=== PATIENT | male | born 1995 | race Two or more races ===

== ENCOUNTER 2016-11-02 14:48 | Inpatient (IN) | payer OTHER ==
[2016-11-02] MEDS ORDERED: MAGNESIUM HYDROXIDE 30 ML UDCUP PO PRN (17:08)
[2016-11-02] MEDS ORDERED: BISACODYL 10 MG SUPP PR PRN (17:08)
[2016-11-02] MEDS ORDERED: POLYETHYLENE GLYCOL 3350 17 GM PKT PO PRN (17:08)
[2016-11-02] MEDS ORDERED: MAG HYDROX/AL HYDROX/SIMETH 30 ML UDCUP PO PRN (17:08)
[2016-11-02] MEDS ORDERED: DIAZEPAM 5 MG TAB PO PRN (17:23)
--- NOTE | 2016-11-02 18:11 | PDOREHIP ---
Admission IRF-[facility] - Admission - 3 Day Assessment Period Admission Date/Day 1: 11/02/16 Day 2: 11/03/16 Day 3: 11/04/16 - Active Diagnoses Comorbidities and Co-existing Conditions at Admission: 11357. None of the Above - Skin Conditions Unhealed Pressure Ulcer (1 or more/Stage 1 or >)-Admission: 0. No
--- NOTE | 2016-11-02 19:33 | GHP ---
[f rep st] HISTORY AND PHYSICAL POST ADMISSION PHYSICIAN EVALUATION AND REHABILITATION TREATMENT PLAN DATE OF ADMISSION: 11/02/2016 DATE OF EVALUATION: 11/02/2016 REFERRING FACILITY: [facility]. 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 He was counseled that surgery was a reasonable treatment and had decompression on 10/27/2016 with a posterior fossa decompression with C0 through C4 PSF with Dr. Ballard. Apparently the surgery went well and postoperatively he did well in the ICU and was transferred to the floor. He was treated for pain as an inpatient and postoperative x-rays demonstrated stable hardware and decreased brainstem compression. After the surgery, the patient notes that he had greater right-sided weakness in the right arm and right leg and he felt that his left-sided symptoms were relatively normal with unchanged function on that side. He was discharged and recommended not to lift more than 10 pounds and no bending or twisting of the neck until followup. He also has a [place] J collar. He notes that his last bowel movement was approximately 8 days ago, but this may contradict Nursing reports. He had a Antony up until a couple of days ago and notes that he has been urinating well and he reports that he has not had residuals, but it is unclear whether that is confirmed or not. He notes that he is sleeping okay with minimal pain and his pain has been in relatively good control. He endorses some mild orthostasis which has improved over the past few days. The patient was discharged to TCU on 10/31/2016 in stable condition for continued rehab and was identified as a rehab candidate by the therapist and staff there and was transferred over to [facility] for further care. STUDIES AND LABS: 1. Head CT from 10/26/[address] of the head. 2. MRI of the brain without contrast on 10/26/2016 showed congenital narrowing and deformity of the opening of the proximal central canal. There does appear to be a Chiari I malformation. Further characterization could be obtained with an MRI of the cervical spine and otherwise no evidence of infarction or hemorrhage. 3. CT of the head on 10/26/2016 showed platybasia with fusion of the right atlanto-occipital articulation and developmental fusion of the C2-C3 vertebrae with no acute fracture or malalignment. Straightening and reversal of the normal cervical lordosis apex C6 and Chiari malformation with cord syrinx better seen on recent MRI. 4. MRI of the cervical spine from 10/26/2016 showed significant Chiari I malformation associated with large syrinx of the cervical spine and associated severe myelomalacia. 5. MRI of the cervical spine dated 10/27/2016 showing a large long segment of syrinx extending from the cervical spine to the midbody of T11 and very mild dextroscoliosis in the upper thoracic spine. 6. X-ray of the cervical spine, 2 or 3 views, dated 10/27/2016, showed interval C1 through 4 posterior fusion, congenital C2-C3 fusion, as well as findings of basilar invagination shown on previous cross sectional imaging, not well demonstrated. 7. Most recent labs on 10/29 showed a hematocrit of 36.6 that was down from 50.5 on 10/26. Sodium was 135, potassium 3.9, chloride 100, carbon dioxide 28, anion gap 11, BUN 9, creatinine 0.49, glucose 103, calcium 8.3. PRECAUTIONS: As noted above, he should not be lifting greater than 10 pounds. No twisting. PAST MEDICAL HISTORY: The patient indicates that he was hit by a pipe in his right shoulder a few months ago and thought that may have been what started the weakness on the right side, otherwise no past medical history. PAST SURGICAL HISTORY: None except for surgery as described above from 2016 for decompression and fusion. PREHOSPITAL MEDICATIONS: None. Coming into rehab he was on: 1. Acetaminophen 650 mg every 6 hours p.r.n. for mild pain. 2. Diazepam 5 mg every 6 hours p.r.n. for anxiety or muscle spasms. 3. Enoxaparin 40 mg daily. 4. Magnesium hydroxide 30 mg 2 times daily p.r.n. for constipation. 5. Morphine 12 hour tablet 15 mg every 12 hours scheduled. 6. Oxycodone 5-10 mg every 4 hours for pain that is moderate. 7. Polyethylene glycol 17 g daily p.r.n. for constipation. ALLERGIES: No known drug allergies. FAMILY HISTORY: No history of psychiatric or neurological disorders. PSYCHOSOCIAL HISTORY: He worked in the [employer] on pipes until his injury. His employer is aware of him being in the hospital. He has family in the area including aunts and uncles and some siblings. No alcohol, drugs or tobacco. He plans to discharge to a trailer with some friends as it is more accessible than his current living situation which was in a basement. REVIEW OF SYSTEMS: All other systems are negative except for as described above. CURRENT FUNCTION: As noted above, he was fully independent prior to this illness and surgery and currently he is independent with feeding, requires assistance with grooming, bathing and unclear what his dressing capability is. He needs some moderate assistance with bed mobility and transfers with min assistance to the toilet. He currently has an AFO and a front-wheel walker and a [place] J and is walking 150 feet with assistance from 2 people and a front- wheel walker. He is currently not using a wheelchair. PHYSICAL EXAMINATION: VITAL SIGNS: Reviewed and normal. GENERAL: He is normally developed, lying in bed. He has a [place] J on and he is by himself in the room. It does smell of feces in the room. EYES: Anicteric. Pupils were equal, round and reactive to light. EARS, NOSE, MOUTH, THROAT: Moist mucous membranes. He has relatively normal dentition. CARDIOVASCULAR: Heart is regular rate and rhythm. Normal S1 and S2. No murmurs were appreciated. No lower extremity edema. EXTREMITIES: Were warm. RESPIRATORY: He was breathing comfortably in room air. Lungs were clear to auscultation bilaterally. He had no wheezes, rhonchi or rales. GI: Abdomen had positive bowel sounds. It was nondistended, nontender. : He had no Antony in place. MUSCULOSKELETAL: He had an AFO on the right foot. He had mild spasticity approximately 2 on the modified Aura Scale with some possible finger contractions on the right side, indicating a longer course of impairments. SKIN : No rashes or skin breakdown. He had some calloused and somewhat dirty skin on his hands. PSYCH: He was appropriate, pleasant and cooperative. He endorsed a normal mood, had a normal affect and had reasonable normal thought content. HEME/LYMPH: No supraclavicular lymphadenopathy. No bruising. NEUROLOGIC: Mental status: In general he was alert and oriented x3, but full mental status exam was deferred as no cognitive complaints. Cranial nerves 2 through 12 were intact and symmetric bilaterally including no diplopia and no facial droop. Strength was 5/5 in the left upper and lower limbs but on the right he had approximately 4 minus in the right-sided biceps and 4 in the wrist extensors, 4+ in the finger flexors, 4 minus in the finger abductors, and 4 in the hip flexor, knee extensor and 4+ in the ankle dorsiflexor and plantar flexor and EHL. Reflexes were 2+ on the left-sided biceps, triceps, brachioradialis, and patella and Achilles with an upgoing toe on the left. On the right reflexes were 2+ in the biceps, triceps, and brachioradialis, but 3+ in the patella and in the Achilles he did have some clonus and again upgoing toes on the right as well. He had positive Syed's bilateral upper limbs. He did have some mild spasticity as noted above, approximately 2 on the modified Aura Scale. Sensation was intact to light touch in the hands and feet and also intact to mild temperature changes. Rapid-alternating movements were intact on the left, but impaired on the right. [id number] was normal on the bilateral upper limbs. Pdmg-ve-dndb testing was deferred. He was not ambulated. 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 It appears that he likely had onset of the symptoms very gradually starting weeks to months ago and gradually worsened until he presented for care. Status post decompression it appears that his primary deficits are on the right side, primarily in motor as well, though sensory appeared grossly intact on this exam, it may impact him functionally depending on subtle deficits. Overall, he has impairments in mobility and self-care, consistent with a nontraumatic spinal cord injury and he appears to be stable and neurologically improving and ready for rehabilitation. His goal is to transition home with relatives for a temporary living location, ultimately return home and get back to work. ISSUES IDENTIFIED: 1. Status post surgical decompression and nontraumatic spinal cord injury: As noted above he has impairments in mobility and self-care that would benefit from physical therapy, occupational therapy evaluations and treatment with the goal to discharge to a temporary living situation with family. He has good premorbid functioning and that will likely serve him well in this. 2. Pain control: Status post surgical decompression he notes relatively low amounts of pain. We are continuing the p.o. scheduled morphine as well as the p.r.n. pain medications with the goal to taper off the opioids entirely. 3. Spasticity: He appears to have some spasticity on the right side that is currently treated with p.r.n. diazepam. Unclear the effect that it may be having on that or whether or not he is using the diazepam. At this point I recommend starting without treatment or with the p.r.n. diazepam and if spasticity is functionally impairing his progress, then starting on a low-dose of baclofen in lieu of diazepam. On the indications included with that medication it said anxiety as well which I am not sure has been an issue for him , but we can continue to monitor and check usage. 4. Neurogenic bowel: Based on the fact that he may not have had a bowel movement in several days, he may be suffering from neurogenic bowel. We are going to start a bowel program including the scheduled and p.r.n. bowel medications. 5. Neurogenic bladder: He had reportedly low postvoid residuals by the patient , but I have not seen documentation of that in his medical record that accompanied him yet. Will continue to look for documentation and start on a rehab bladder program, assuming that he does have bladder involvement from his nontraumatic spinal cord injury. 6. Code status: Full code. 7. Anticoagulation for deep venous thrombosis PPx: He does not have a DVT and would need DVT prophylaxis given the spinal cord injury and he is currently on 30 mg of Lovenox subcutaneous twice a day. Sequential compression devices are contraindicated because of his high mobility status. 8. Skin: Neurogenic skin. Continue to monitor. He does not appear to have any skin breakdown at this time. 9. Surgical wounds: We plan to change the dressing daily and monitor for good wound healing. 10. Orthotics: The patient does currently have a right-sided ankle foot orthosis which given the strength of his right leg may or may not be needed. He might be benefitting from it for knee stability with walking and he does have good ankle dorsiflexion so I anticipate that that is probably the reason he has it. He can continue with the current AFO, but need a new one at this facility and will continue to work on that with therapies. INDIVIDUALIZED OVERALL PLAN OF CARE: Overall I think he has a very good medical and rehabilitation prognosis as he has low comorbid conditions affecting his function and good function on his left side compared to his right. I have independently evaluated and examined the patient. He will require close daily supervision from a rehab physician and would benefit from an interdisciplinary team approach with physical therapy for 1-1/2 hours per day, 5-7 days a week, and occupational therapy for 1-1/2 hours per day, 5-7 days per week as well as prosthetics and orthotics for a right-sided ankle foot orthosis if needed TBD. He will also benefit from working with the social workers and nutrition. I anticipate that he will be able to achieve independence with some modification and assistive devices for ambulation as well as all aspects of self-care. He can tolerate 3 hours of therapy per day and will participate in therapy in a sufficient carryover to benefit from rehabilitation. The patient will benefit from the comprehensive inpatient rehab therapies to address the functional goals above. I anticipate that he will make meaningful progress toward the rehab goals in a reasonable amount of time. Continued progress towards rehabilitation goals cannot be achieved at a lower level of care. Plan is to discharge to friends and family after 7-10 days, though I anticipate that he may benefit from a longer rehabilitation stay to be determined. He may also be at risk for some orthostatic hypotension which he addressed as a possible concern, though it has improved, as well as other things such as mood disruption, sleep changes, neuropathic pain, urinary tract infection, DVT, heterotopic ossification, pneumonia, nutritional deficiency, pressure ulcer, or shoulder pain and we will monitor clinically for these things and treat as appropriate. He should follow up with Dr. Ballard, his neurosurgeon, 2 weeks postoperative for a wound check and wear a C-collar at all times except for when showering. /[id number]/MODL MTDD
[2016-11-02] MEDS: oxyCODONE IR 5 MG TAB PO PRN (19:47)
[2016-11-02] MEDS: morphINE SR 15 MG TAB PO SCH (19:48)
[2016-11-02] MEDS: SENNOSIDES/DOCUSATE SODIUM TAB PO SCH (19:49)
[2016-11-02] MEDS: ENOXAPARIN 30 MG/0.3 ML SYR SC SCH (19:49)
[2016-11-03] MEDS: ENOXAPARIN 30 MG/0.3 ML SYR SC SCH ×2 (08:38→21:30)
[2016-11-03] MEDS: morphINE SR 15 MG TAB PO SCH ×2 (08:38→21:25)
[2016-11-03] MEDS: SENNOSIDES/DOCUSATE SODIUM TAB PO SCH ×2 (08:38→21:29)
[2016-11-03] MEDS ORDERED: FLU VACC QS 2016-17(3-64YR)/PF 0.5 ML SYR (FLUARIX QUAD) IM ONE (15:51)
[2016-11-03] MEDS ORDERED: BACLOFEN 10 MG TAB PO PRN (16:45)
--- NOTE | 2016-11-03 16:56 | SOAPPROG ---
SOAP Progress Note Assessment/Plan: 20yo Malay speaking M with Klippel-Feil, Platybasia and Chiari malformation c/ b cervical syrinx s/p occiput-C4 decompression/PSF 10/27/2015 with ongoing Right sided weakness/spasticity. Non-traumatic SCI with impairments in mobility and ADLs: PT/OT/RN under physiatric supervision with goal of safe discharge to home Klippel-Feil, Platybasia and Chiari malformation c/b cervical syrinx s/p occiput -C4 decompression/PSF: Maria Esther Snowden at all times except for hygeine, Dressing changes QOD, Right AFO prn Spasticity: Mild and not seemingly disturbing, will change Valium to baclofen 10mg TID prn Pain control: improving, minimal prn use past 24hrs, will d/c his a.m. Morphine ER. Cont. Ms contin 15 qHS with Oxy IR 5-10mg q 4hrs prn to taper Constipation: escalating bowel regiment, decreasing opioids Orthostatic hypotension: Not impeding therapies, encouraging P.O. hydration, will check labs given none documented Neurogenic bowel/bladder: no e/o this impeding function, bladder scans wnls Prophy: LMWH, no GI indicated Full code Dispo: home temporarily with family Follow up: Dr. Ballard ([facility]) 2week post op (~11/12) Subjective: No acute events. Lightheadedness with sitting up and/or standing but has been able to tolerate ambulating with therapies. Notes some subjective bowel distension and mild anorexia. Pain well controlled. Denies SOB/N/V. Objective: Vital Signs Temp Pulse Resp BP Pulse Ox 36.6 C 97 16 116/80 95 11/03/16 08:00 11/03/16 16:05 11/03/16 08:00 11/03/16 16:05 11/03/16 08:00 11/02/16 11/03/16 11/04/16 05:59 05:59 05:59 Intake Total 250 Output Total 950 175 Balance -700 -175 - Pending Discharge Pending Discharge Within 24 Hours: No Pending Discharge Within 48 Hours: No Physical Exam - Physical Exam General Appearance: alert, no apparent distress Neck: other (in [place] j) Respiratory: lungs clear, normal breath sounds Cardiac/Chest: regular rate, rhythm Abdomen: normal bowel sounds, non-tender, soft Skin: normal color, other (incision dressed without strike through) Neuro/Psych: alert, normal mood/affect, oriented x 3, motor weakness (right UE 4 /5s with +hoffmans and MAS 0-1+ ) ICD10 Worksheet Patient Problems: Problems Problem Status Diagnosed Neurogenic bowel Acute Right sided weakness Acute Syrinx of spinal cord Acute
--- NOTE | 2016-11-04 08:08 | SOAPPROG ---
SOAP Progress Note Assessment/Plan: 20yo Turkish speaking M with Klippel-Feil, Platybasia and Chiari malformation c/ b cervical syrinx s/p occiput-C4 decompression/PSF 10/27/2015 with ongoing Right sided weakness/spasticity. Non-traumatic SCI with impairments in mobility and ADLs: PT/OT/RN under physiatric supervision with goal of safe discharge to home Klippel-Feil, Platybasia and Chiari malformation c/b cervical syrinx s/p occiput -C4 decompression/PSF: [place] at all times except for hygiene, Dressing changes QOD, Right AFO prn Spasticity: Mild and not seemingly disturbing, will change Valium to baclofen 10mg TID prn Pain control: improving, minimal prn use, will d/c his a.m. Morphine ER. Cont. Ms contin 15 qHS with Oxy IR 5-10mg q 4hrs prn to taper Constipation: escalated bowel regiment, decreasing opioids, improving Orthostatic hypotension: Not impeding therapies, encouraging P.O. hydration, labs pending today Neurogenic bowel/bladder: no e/o this impeding function, bladder scans wnls Prophy: LMWH, no GI indicated Full code Dispo: home temporarily with family Follow up: Dr. Ballard ([facility] [place] [facility]) 2week post op (~11/12) Subjective: no acute events. slept well, pain well controlled. Denies CHRISTIAN, N/V. Good BM yesterday. Objective: Vital Signs Temp Pulse Resp BP Pulse Ox 36.9 C 86 14 109/79 94 11/04/16 06:24 11/04/16 06:24 11/04/16 06:24 11/04/16 06:24 11/04/16 06:24 11/03/16 11/04/16 11/05/16 05:59 05:59 05:59 Intake Total 250 1608 Output Total 950 575 Balance -700 1033 - Pending Discharge Pending Discharge Within 24 Hours: No Pending Discharge Within 48 Hours: No Physical Exam - Physical Exam General Appearance: alert, no apparent distress Neck: other ([place] j in place) Respiratory: lungs clear, normal breath sounds, No respiratory distress Cardiac/Chest: regular rate, rhythm Abdomen: non-tender, soft Skin: normal color, warm/dry Extremities: No pedal edema Neuro/Psych: alert, normal mood/affect, oriented x 3 ICD10 Worksheet Patient Problems: Problems Problem Status Diagnosed Neurogenic bowel Acute Right sided weakness Acute Syrinx of spinal cord Acute
[2016-11-04] MEDS: SENNOSIDES/DOCUSATE SODIUM TAB PO SCH ×2 (08:10→19:56)
[2016-11-04] MEDS: ENOXAPARIN 30 MG/0.3 ML SYR SC SCH ×2 (08:10→19:55)
[2016-11-04 09:31] LABS: HEMATOCRIT 39.6 % (40.0-51.0); HEMOGLOBIN 13.7 g/dL (13.7-17.5); MEAN CELL HEMOGLOBIN CONCENTR. 34.6 g/dL (32.4-36.7); MEAN CELL VOLUME 86.7 fL (81.5-99.8); RED BLOOD CELL COUNT 4.57 10^6/uL (4.40-6.38); RED CELL DISTRIBUTION WIDTH 12.1 % (11.5-15.2)
[2016-11-04 09:40] LABS: ANION GAP 12 mEq/L (8-16); CALCIUM 9.2 mg/dL (8.5-10.4); CARBON DIOXIDE 30 mEq/l (22-31); CHLORIDE 98 mEq/L (97-110); CREATININE 0.6 mg/dL (0.7-1.3); GLOMERULAR FILTRATION RATE > 60; GLUCOSE 82 mg/dL (70-100); POTASSIUM 4.4 mEq/L (3.5-5.2); SODIUM 140 mEq/L (134-144)
[2016-11-04] MEDS: morphINE SR 15 MG TAB PO SCH (19:56)
[2016-11-04] MEDS: oxyCODONE IR 5 MG TAB PO PRN (22:58)
[2016-11-05] MEDS: oxyCODONE IR 5 MG TAB PO PRN (05:09)
[2016-11-05] MEDS: ENOXAPARIN 30 MG/0.3 ML SYR SC SCH ×2 (08:54→20:29)
[2016-11-05] MEDS: SENNOSIDES/DOCUSATE SODIUM TAB PO SCH ×2 (08:55→20:29)
--- NOTE | 2016-11-05 11:50 | SOAPPROG ---
SOAP Progress Note Assessment/Plan: Assessment: 20 yo Slovenian speaking M with Klippel-Feil, Platybasia and Chiari malformation c /b cervical syrinx s/p occiput-C4 decompression/PSF 10/27/2015 with ongoing Right sided weakness/spasticity. * Non-traumatic SCI with impairments in mobility and ADLs: Initial FIM 98 on 11/05. Walked 200' FWW SBA. Did 6 steps. Max A for C-collar, min A bathing, o/ w SBA or S for ADLs. Continue PT/OT/RN * Klippel-Feil, Platybasia and Chiari malformation c/b cervical syrinx s/p occiput-C4 decompression/PSF: [place] J at all times except for hygiene, Dressing changes QOD, Right AFO pr * Spasticity: Mild and not seemingly disturbing, not using baclofen 10mg TID pr * Pain control: improving, minimal prn use. Continue Ms contin 15 qHS with Oxy IR 5-10mg q 4hrs prn to tape * Constipation: escalated bowel regiment, decreasing opioids, improvin * Orthostatic hypotension: Not impeding therapies, mild dehydration on BMP . Continue to encourage hydration. Denies vertigo. * No neurogenic bowel/bladder: bladder scans wnls * Prophy: LMWH, no GI indicated Attended staffing, 15 min. D/w case mgmt, nursiing, PT, OT. Tentative discharge date of 11/15/16. Will go to friends home with 3 SEUN, as his amisha e with his brothers is in a basement. Follow up: Dr. Ballard ([facility]) 2week post op (~11/12) 11/05/16 12:20 Subjective: C/O L lateral thigh pain. Also he feels like his L foot is swollen. Had orthostatic hypotension on 11/03/16 116/70 97 supine. 72/42 127 standing. Therapy staff report that he described spinning sensation. Objective: Vital Signs Temp Pulse Resp BP Pulse Ox 36.6 C 103 H 17 116/80 93 11/05/16 06:44 11/05/16 06:44 11/05/16 06:44 11/05/16 06:44 11/05/16 06:44 Laboratory Results 11/04/16 06:00 11/04/16 06:00 11/04/16 11/05/16 11/06/16 05:59 05:59 05:59 Intake Total 1608 0612 472 Output Total 575 300 400 Balance 1033 1172 72 - Time Spent With Patient Time Spent With Patient: Greater than 35 minutes floor time today, including more than 50% of time in coordination of care during staffing, and counseling patient. Physical Exam - Physical Exam General Appearance: WD/WN, alert, no apparent distress Respiratory: No respiratory distress, No accessory muscle use Cardiac/Chest: No edema Peripheral Pulses: 2+: dorsalis-pedis (L) Skin: normal color, warm/dry Extremities: non-tender, No pedal edema, No calf tenderness Neuro/Psych: alert, normal mood/affect, abnormal gait (Shifting L and lifting R pelvis to help R foot clear the ground during R step through due to mild foot drop.) ICD10 Worksheet Patient Problems: Problems Problem Status Diagnosed Neurogenic bowel Acute Right sided weakness Acute Syrinx of spinal cord Acute
--- NOTE | 2016-11-05 16:22 | DX ---
Two Views of the Abdomen History: Right lower quadrant pain Findings: Several small gas bubbles in the right lower quadrant are nonspecific. Retroperitoneal fat planes are intact. The lumbar spine is tilted toward the patient's left. There are no dilated loops, significant air-fluid levels, or free air identified. Impression: Right lower quadrant gas bubbles could potentially indicate evidence of appendicitis. If clinically indicated consider CT with IV contrast. Results called to Radha the patients rehab nurse at 4:20 p.m.
[2016-11-05 16:56] LABS: % IMMATURE GRANULYOCYTES 0.9 % (0.0-1.1); ABSOLUTE IMMATURE GRANULOCYTES 0.09 10^3/uL (0.00-0.10); ADD DIFF? NO; ADD MORPH? NO; ADD SCAN? NO; ATYPICAL LYMPHOCYTE FLAG 0 (0-99); FRAGMENT RBC FLAG 0 (0-99); HEMATOCRIT 36.1 % (40.0-51.0); HEMOGLOBIN 12.8 g/dL (13.7-17.5); LEFT SHIFT FLG 0 (0-99); LIPEMIA HEMOLYSIS FLAG 90 (0-99); MEAN CELL HEMOGLOBIN 30.2 pg (27.9-34.1); MEAN CELL HEMOGLOBIN CONCENTR. 35.5 g/dL (32.4-36.7); MEAN CELL VOLUME 85.1 fL (81.5-99.8); MEAN PLATELET VOLUME 10.5 fL (8.7-11.7); PLATELET CLUMPS FLAG 0 (0-99); PLATELET COUNT 293 10^3/uL (150-400); RED BLOOD CELL COUNT 4.24 10^6/uL (4.40-6.38); RED CELL DISTRIBUTION WIDTH 12.1 % (11.5-15.2)
[2016-11-05 17:22] LABS: ALANINE AMINOTRANSFERASE 38 IU/L (21-72); ALBUMIN 3.5 g/dL (3.5-5.0); ALKALINE PHOSPHATASE 96 IU/L (38-126); ANION GAP 12 mEq/L (8-16); ASPARTATE AMINOTRANSFERASE 17 IU/L (17-59); BILIRUBIN,TOTAL 0.4 mg/dL (0.1-1.4); CARBON DIOXIDE 23 mEq/l (22-31); CHLORIDE 99 mEq/L (97-110); CREATININE 0.5 mg/dL (0.7-1.3); GLOMERULAR FILTRATION RATE > 60; GLUCOSE 95 mg/dL (70-100); SODIUM 134 mEq/L (134-144); TOTAL PROTEIN 6.3 g/dL (6.3-8.2)
[2016-11-05 20:21] LABS: COLOR YELLOW; LEUKOCYTE ESTERASE,URINE NEGATIVE (NEGATIVE); NITRITE,URINE NEGATIVE (NEGATIVE)
[2016-11-05] MEDS: morphINE SR 15 MG TAB PO SCH (20:28)
[2016-11-06] MEDS: SENNOSIDES/DOCUSATE SODIUM TAB PO SCH ×2 (10:08→19:24)
[2016-11-06] MEDS: ENOXAPARIN 30 MG/0.3 ML SYR SC SCH ×2 (10:24→21:18)
--- NOTE | 2016-11-06 14:00 | SOAPPROG ---
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 * Non-traumatic SCI with impairments in mobility and ADLs: Initial FIM 98 on 11/05. Walked 200' FWW SBA. Did 6 steps. Max A for C-collar, min A bathing, o/ w SBA or S for ADLs. Continue PT/OT/RN * Klippel-Feil, Platybasia and Chiari malformation c/b cervical syrinx s/p occiput-C4 decompression/PSF: [place] J at all times except for hygiene, Dressing changes QOD, Right AFO pr * Spasticity: Mild and not seemingly disturbing, not using baclofen 10mg TID pr * Pain control: improving, minimal prn use. Continue Ms contin 15 qHS with Oxy IR 5-10mg q 4hrs prn; used once yesterday and none so far today 11/06/16. * L thigh pain: c/w IT band syndrome due to gait abnormality. May improve with continued PT. * Constipation: escalated bowel regiment, decreasing opioids, improving * Orthostatic hypotension: Not impeding therapies, mild dehydration on BMP . Continue to encourage hydration. Denies vertigo. * No neurogenic bowel/bladder: bladder scans wnls * Prophy: LMWH, no GI indicated Tentative discharge date of 11/15/16. Will go to friends home with 3 SEUN, as his amisha e with his brothers is in a basement. Follow up: Dr. Ballard ([facility] [place] 2week post op (~11/12) 11/06/16 13:57 Subjective: Abdominal discomfort is resolved. L foot still feels swollen. Otherwise no complaints. Objective: Vital Signs Temp Pulse Resp BP Pulse Ox 37.0 C 115 H 14 92/59 L 90 L 11/06/16 06:41 11/06/16 10:23 11/06/16 08:00 11/06/16 10:23 11/06/16 08:00 Laboratory Results 11/05/16 16:00 11/05/16 16:00 11/05/16 11/06/16 11/07/16 05:59 05:59 05:59 Intake Total 1472 2 Output Total 300 1200 200 Balance 1172 822 -200 Physical Exam - Physical Exam General Appearance: WD/WN, alert, no apparent distress Respiratory: No respiratory distress, No accessory muscle use Cardiac/Chest: No edema Extremities: other (NT L IT band) Neuro/Psych: alert, normal mood/affect, oriented x 3 ICD10 Worksheet Patient Problems: Problems Problem Status Diagnosed Neurogenic bowel Acute Right sided weakness Acute Syrinx of spinal cord Acute
[2016-11-06] MEDS: oxyCODONE IR 5 MG TAB PO PRN ×2 (15:11→23:20)
[2016-11-06] MEDS: morphINE SR 15 MG TAB PO SCH (21:18)
[2016-11-07] MEDS: SENNOSIDES/DOCUSATE SODIUM TAB PO SCH ×3 (09:13→20:45)
[2016-11-07] MEDS: ENOXAPARIN 30 MG/0.3 ML SYR SC SCH ×2 (09:13→20:44)
--- NOTE | 2016-11-07 11:34 | SOAPPROG ---
SOAP Progress Note Assessment/Plan: Assessment: 20 yo Icelandic speaking M with Klippel-Feil, Platybasia and Chiari malformation c /b cervical syrinx s/p occiput-C4 decompression/PSF 10/27/2015 with ongoing Right sided weakness/spasticity. * Non-traumatic SCI with impairments in mobility and ADLs: Initial FIM 98 on 11/05. Walked 200' FWW SBA. Did 6 steps. Max A for C-collar, min A bathing, o/ w SBA or S for ADLs. Continue PT/OT/RN * Klippel-Feil, Platybasia and Chiari malformation c/b cervical syrinx s/p occiput-C4 decompression/PSF: [place] J at all times except for hygiene, Dressing changes QOD, Right AFO pr * Spasticity: Mild and not seemingly disturbing, not using baclofen 10mg TID prn * Pain control: improving, minimal prn use. Continue Ms contin 15 qHS with Oxy IR 5-10mg q 4hrs prn; used oxycodone twice 11/06/16. * L thigh pain: c/w IT band syndrome due to gait abnormality. Resolved. * Constipation: escalated bowel regiment, decreasing opioids, improving * Orthostatic hypotension: Not impeding therapies, mild dehydration on BMP . Continue to encourage hydration. Denies vertigo. * No neurogenic bowel/bladder: bladder scans wnls * Prophy: LMWH, no GI indicated Mr. Cuevas has a mobility limitation that significantly impairs one or more mobility-related ADLs in the home, and he can use a walker safely, and the functional mobility deficit cannot be resolved with a cane. Tentative discharge date of 11/15/16. Will go to friends home with 3 SEUN, as his amisha e with his brothers is in a basement. Follow up: Dr. Ballard ([facility] [place]) 2week post op (~11/12) 11/07/16 12:10 Subjective: No complaints. Denies pain, dyspnea, cough, f/c. Slept well. Objective: Vital Signs Temp Pulse Resp BP Pulse Ox 37.3 C 93 16 98/64 L 93 11/06/16 19:40 11/06/16 19:40 11/06/16 19:40 11/06/16 19:40 11/06/16 19:40 Laboratory Results 11/05/16 16:00 11/05/16 16:00 11/06/16 11/07/16 11/08/16 05:59 05:59 05:59 Intake Total 2021 300 236 Output Total 1200 950 Balance 822 -650 236 Physical Exam - Physical Exam General Appearance: WD/WN, alert, no apparent distress Respiratory: No respiratory distress, No accessory muscle use Skin: normal color, warm/dry Neuro/Psych: alert, normal mood/affect, other (Brushin gteeth staning at sink. Soome ataxia with RUE. Minor LOB corrected by OT.) ICD10 Worksheet Patient Problems: Problems Problem Status Diagnosed Neurogenic bowel Acute Right sided weakness Acute Syrinx of spinal cord Acute
[2016-11-07] MEDS: morphINE SR 15 MG TAB PO SCH (20:44)
[2016-11-07] MEDS: oxyCODONE IR 5 MG TAB PO PRN (23:23)
[2016-11-08] MEDS: SENNOSIDES/DOCUSATE SODIUM TAB PO SCH ×2 (08:57→21:04)
[2016-11-08] MEDS: ENOXAPARIN 30 MG/0.3 ML SYR SC SCH ×2 (08:57→20:20)
--- NOTE | 2016-11-08 13:53 | SOAPPROG ---
SOAP Progress Note Assessment/Plan: Assessment: 20 yo Luxembourgish speaking M with Klippel-Feil, Platybasia and Chiari malformation c /b cervical syrinx s/p occiput-C4 decompression/PSF 10/27/2015 with ongoing Right sided weakness/spasticity. * Non-traumatic SCI with impairments in mobility and ADLs: Initial FIM 98 on 11/05. Walked 200' FWW SBA. Did 6 steps. Max A for C-collar, min A bathing, o/ w SBA or S for ADLs. Continue PT/OT/RN * Klippel-Feil, Platybasia and Chiari malformation c/b cervical syrinx s/p occiput-C4 decompression/PSF: [place] J at all times except for hygiene, Dressing changes QOD, Right AFO pr * Spasticity: Mild and not seemingly disturbing, not using baclofen 10mg TID prn * Pain control: improving, minimal prn use. Continue Ms contin 15 qHS with Oxy IR 5-10mg q 4hrs prn; used oxycodone twice 11/06/16. * L thigh pain: c/w IT band syndrome due to gait abnormality. Resolved. * Constipation: escalated bowel regiment, decreasing opioids, improving * Orthostatic hypotension: Not impeding therapies, mild dehydration on BMP . Continue to encourage hydration. Denies vertigo. * No neurogenic bowel/bladder: bladder scans wnls * Prophy: LMWH, no GI indicated Mr. Cuevas has a mobility limitation that significantly impairs one or more mobility-related ADLs in the home, and he can use a walker safely, and the functional mobility deficit cannot be resolved with a cane. Tentative discharge date of 11/15/16. Will go to friends home with 3 SEUN, as his amisha e with his brothers is in a basement. [place] [place] (~11/12) 11/07/16 12:10 11/08/16 13:47 Subjective: C/O lightheadedness when he stands. Also continues to have sensation of swelling LLE. O/W w/out complaints; no f/c, dyspnea, cough, n/v/c/d. Denies thirst but thinks he's urinating more than usual. Objective: Vital Signs Temp Pulse Resp BP Pulse Ox 36.8 C 103 H 18 120/81 H 93 11/08/16 07:44 11/08/16 07:44 11/08/16 07:44 11/08/16 07:44 11/08/16 07:44 Laboratory Results 11/05/16 16:00 11/05/16 16:00 11/07/16 11/08/16 11/09/16 05:59 05:59 05:59 Intake Total 300 876 236 Output Total 950 1100 Balance -650 -224 236 Physical Exam - Physical Exam General Appearance: WD/WN, alert, no apparent distress Respiratory: No respiratory distress, No accessory muscle use Cardiac/Chest: No edema Skin: normal color, warm/dry Extremities: No swelling Neuro/Psych: alert, normal mood/affect, oriented x 3 ICD10 Worksheet Patient Problems: Problems Problem Status Diagnosed Neurogenic bowel Acute Right sided weakness Acute Syrinx of spinal cord Acute
[2016-11-08 17:29] LABS: ANION GAP 13 mEq/L (8-16); CALCIUM 9.1 mg/dL (8.5-10.4); CARBON DIOXIDE 27 mEq/l (22-31); CHLORIDE 98 mEq/L (97-110); CREATININE 0.5 mg/dL (0.7-1.3); GLOMERULAR FILTRATION RATE > 60; GLUCOSE 117 mg/dL (70-100); POTASSIUM 4.1 mEq/L (3.5-5.2); SODIUM 138 mEq/L (134-144)
[2016-11-08] MEDS: morphINE SR 15 MG TAB PO SCH (20:12)
[2016-11-09] MEDS: ENOXAPARIN 30 MG/0.3 ML SYR SC SCH ×2 (09:35→20:49)
[2016-11-09] MEDS: SENNOSIDES/DOCUSATE SODIUM TAB PO SCH (09:35)
--- NOTE | 2016-11-09 14:12 | SOAPPROG ---
[id number] c/b cervical syrinx s/p occiput-C4 decompression/PSF 10/27/2015 with ongoing Right sided weakness/spasticity. * Non-traumatic SCI with impairments in mobility and ADLs: Initial FIM 98 on 11/05. Walked 200' FWW SBA. Did 6 steps. Max A for C-collar, min A bathing, o/ w SBA or S for ADLs. Continue PT/OT/RN * Klippel-Feil, Platybasia and Chiari malformation c/b cervical syrinx s/p occiput-C4 decompression/PSF: [place] J at all times except for hygiene, Dressing changes QOD, Right AFO prn. D/C sutures. * Spasticity: Mild and not seemingly disturbing, not using baclofen 10mg TID prn * Pain control: improving, minimal prn use. D/C Ms contin 15 qHS on 11/09/16; continue Oxy IR 5-10mg q 4hrs prn. * L thigh pain: c/w IT band syndrome due to gait abnormality. Resolved. * Constipation: escalated bowel regiment, decreasing opioids, improving; change senna to PRN on 11/09/16. * Orthostatic hypotension: Not impeding therapies, mild dehydration on BMP and 11/08/16. Continue to encourage hydration. Denies vertigo. * No neurogenic bowel/bladder: bladder scans wnls * Prophy: LMWH, no GI indicated Mr. Cuevas has a mobility limitation that significantly impairs one or more mobility-related ADLs in the home, and he can use a walker safely, and the functional mobility deficit cannot be resolved with a cane. Tentative discharge date of 11/15/16. Will go to friends home with 3 SEUN, as his amisha e with his brothers is in a basement. Follow up: Dr. Ballard ([facility] [place]) 2week post op (~11/12). 11/09/16 15:47 Subjective: Still with some lightheadedness when standing, but less. Pain is much improved and thinks he can go without morphine SR at night. Objective: Vital Signs Temp Pulse Resp BP Pulse Ox 36.8 C 101 H 16 116/68 93 11/09/16 07:30 11/09/16 07:30 11/09/16 07:30 11/09/16 07:30 11/09/16 07:30 Laboratory Results 11/05/16 16:00 11/08/16 13:56 11/08/16 11/09/16 11/10/16 05:59 05:59 05:59 Intake Total 876 1276 120 Output Total 1100 550 625 Balance -224 726 -505 Physical Exam - Physical Exam General Appearance: WD/WN, alert, no apparent distress Respiratory: No respiratory distress, No accessory muscle use Cardiac/Chest: No edema Skin: normal color, warm/dry Neuro/Psych: alert, normal mood/affect, oriented x 3, motor weakness (RUE, working on strengthening exercises with OT. ), other (Observed ambulating with PT, FWW, supervision, step-through pattern) ICD10 Worksheet Patient Problems: Problems Problem Status Diagnosed Neurogenic bowel Acute Right sided weakness Acute Syrinx of spinal cord Acute
[2016-11-10] MEDS: ENOXAPARIN 30 MG/0.3 ML SYR SC SCH ×2 (07:35→20:03)
--- NOTE | 2016-11-10 12:08 | SOAPPROG ---
SOAP Progress Note Assessment/Plan: Assessment: 20 yo Malay speaking M with Klippel-Feil, Platybasia and Chiari malformation c /b cervical syrinx s/p occiput-C4 decompression/PSF 10/27/2015 with ongoing Right sided weakness/spasticity. * Non-traumatic SCI with impairments in mobility and ADLs: Initial FIM 98 on 11/05. Walked 200' FWW SBA. Did 6 steps. Max A for C-collar, min A bathing, o/ w SBA or S for ADLs. Continue PT/OT/RN * Klippel-Feil, Platybasia and Chiari malformation c/b cervical syrinx s/p occiput-C4 decompression/PSF: [place] J at all times except for hygiene, Dressing changes QOD, Right AFO prn. D/C sutures. * Spasticity: Mild and not seemingly disturbing, not using baclofen 10mg TID prn * Pain control: improving, minimal prn use. D/C Ms contin 15 qHS on 11/09/16; continue Oxy IR 5-10mg q 4hrs prn. * Left groin pain- hip flexor?adductor strain- ice 20 minutes prn. Asked his PT to give hip flexor and adductor strecthing exercises. * L thigh pain: c/w IT band syndrome due to gait abnormality. Resolved. * Constipation: escalated bowel regiment, decreasing opioids, improving; change senna to PRN on 11/09/16. * Orthostatic hypotension: Not impeding therapies, mild dehydration on BMP and 11/08/16. Continue to encourage hydration. Denies vertigo. * No neurogenic bowel/bladder: bladder scans wnls * Prophy: LMWH, no GI indicated Mr. Cuevas has a mobility limitation that significantly impairs one or more mobility-related ADLs in the home, and he can use a walker safely, and the functional mobility deficit cannot be resolved with a cane. Tentative discharge date of 11/15/16. Will go to friends home with 3 SEUN, as his amisha e with his brothers is in a basement. Plan: 11/10/16 12:05 Subjective: C/O right groin pain. Objective: Vital Signs Temp Pulse Resp BP Pulse Ox 36.4 C 108 H 16 108/75 93 11/10/16 07:39 11/10/16 07:39 11/10/16 07:39 11/10/16 07:39 11/10/16 07:39 Laboratory Results 11/05/16 16:00 11/08/16 13:56 11/09/16 11/10/16 11/11/16 05:59 05:59 05:59 Intake Total 1276 610 820 Output Total 550 1375 450 Balance 726 -765 370 Physical Exam - Physical Exam General Appearance: WD/WN, alert, no apparent distress Neck: non-tender, full range of motion Respiratory: lungs clear, normal breath sounds Abdomen: normal bowel sounds, non-tender, soft Skin: normal color, warm/dry, No cyanosis Neuro/Psych: alert, motor weakness, depressed affect (1/2-1 grade weakness right deltoid,triceps, wrist and finger extensors. Mild weakness right iliopsoas, quads and HS. Somewhat depressed affect. ), No normal mood/affect ICD10 Worksheet Patient Problems: Problems Problem Status Diagnosed Neurogenic bowel Acute Right sided weakness Acute Syrinx of spinal cord Acute
[2016-11-11] MEDS: ENOXAPARIN 30 MG/0.3 ML SYR SC SCH ×2 (07:43→20:07)
--- NOTE | 2016-11-11 09:34 | SOAPPROG ---
SOAP Progress Note Assessment/Plan: Assessment: 20 yo Korean speaking M with Klippel-Feil, Platybasia and Chiari malformation c /b cervical syrinx s/p occiput-C4 decompression/PSF 10/27/2015 with ongoing Right sided weakness/spasticity. * Non-traumatic SCI with impairments in mobility and ADLs: Initial FIM 98 on 11/05. Walked 200' FWW SBA. Did 6 steps. Max A for C-collar, min A bathing, o/ w SBA or S for ADLs. Continue PT/OT/RN * Klippel-Feil, Platybasia and Chiari malformation c/b cervical syrinx s/p occiput-C4 decompression/PSF: [place] at all times except for hygiene, Dressing changes QOD, Right AFO prn. D/C sutures. * Spasticity: Mild and not seemingly disturbing, not using baclofen 10mg TID prn * Tight right hand intrinsics. Have discussed with Omayra LUNA to see if he would benefit from a cock-up wrist splint to be worn at night to keep hand intrinsics stretched. * Blurred vision witjout diplopia- consider arranging for visual field checks and routine eye exam inpt vs outpt * Pain control: improving, minimal prn use. D/C Ms contin 15 qHS on 11/09/16; continue Oxy IR 5-10mg q 4hrs prn. * Left groin pain- hip flexor?adductor strain- ice 20 minutes prn. Asked his PT to give hip flexor and adductor stretching exercises. * L thigh pain: c/w IT band syndrome due to gait abnormality. Resolved. * Constipation: escalated bowel regiment, decreasing opioids, improving; change senna to PRN on 11/09/16. * Orthostatic hypotension: Not impeding therapies, mild dehydration on BMP and 11/08/16. Continue to encourage hydration. Denies vertigo. * No neurogenic bowel/bladder: bladder scans wnls * Prophy: LMWH, no GI indicated Mr. Cuevas has a mobility limitation that significantly impairs one or more mobility-related ADLs in the home, and he can use a walker safely, and the functional mobility deficit cannot be resolved with a cane. Tentative discharge date of 11/15/16. Will go to friends home with 3 SEUN, as his amisha e with his brothers is in a basement. Plan: 11/10/16 12:05 11/11/16 09:31 11/11/16 09:39 Subjective: He is c/o some blurred vision in PT today, but denies diplopia Objective: Vital Signs Temp Pulse Resp BP Pulse Ox 36.8 C 98 20 110/78 94 11/11/16 07:33 11/11/16 07:33 11/11/16 07:33 11/11/16 07:33 11/11/16 07:33 Laboratory Results 11/05/16 16:00 11/08/16 13:56 11/10/16 11/11/16 11/12/16 05:59 05:59 05:59 Intake Total 610 1720 Output Total 1375 1250 Balance -765 470 Physical Exam - Physical Exam General Appearance: WD/WN, alert, no apparent distress EENT: PERRL/EOMI Neck: non-tender, normal inspection Respiratory: lungs clear, normal breath sounds Cardiac/Chest: No edema, No JVD Abdomen: non-tender, soft Skin: normal color, warm/dry Extremities: No normal range of motion (Decreased right glenohumeral joint but WFLs), No swelling, No Richar's sign ICD10 Worksheet Patient Problems: Problems Problem Status Diagnosed Neurogenic bowel Acute Right sided weakness Acute Syrinx of spinal cord Acute
[2016-11-12] MEDS ORDERED: MIDODRINE HCL 5 MG TAB PO ONE (12:18)
--- NOTE | 2016-11-12 13:09 | SOAPPROG ---
[id number] syrinx s/p occiput-C4 decompression/PSF 10/27/2015 with ongoing Right sided weakness/spasticity. 11/12/2016 he is having vision changes with posture, most likely orthostasis in setting of subacute SCI. Also having spasticity that presents slightly differently day to day. * Non-traumatic SCI with impairments in mobility and ADLs: Initial FIM 98 on 11/05. Did 6 steps. Max A for C-collar, min A bathing, o/w SBA or S for ADLs. Continue PT/OT/RN. Mr. Cuevas has a mobility limitation that significantly impairs one or more mobility-related ADLs in the home, and he can use a walker safely, and the functional mobility deficit cannot be resolved with a cane. * Klippel-Feil, Platybasia and Chiari malformation c/b cervical syrinx s/p occiput-C4 decompression/PSF: [place] J at all times except for hygiene, Dressing changes QOD, Right AFO prn. D/C sutures. * Spasticity: Affecting his function and rehab course. Scheduling baclofen at starting dose of 5 mg TID and may increase to 10 mg TID on 11/14 if needed. May contribute to worsening orthostasis so plan to monitor closely. * Tight right hand intrinsics. wrist extension splint and stretching per OT * Blurred vision without diplopia- difficult to get a clear history but it appears to be related to orthostasis and lightheadedness. see plan for orthostasis. I considered neuroimaging as it could represent a PRECISION DYER complication of surgery, however it appears that symptoms are postural and will hold on imaging for now. * Pain control: Controlled. MS contin weaned and will stop PRN opioids as he is not using them. * Left groin pain- possible hip flexor strain, stretching and ice per PT * L thigh pain: c/w IT band syndrome due to gait abnormality. Resolved. * Constipation: Had some periods of constipation, likely a component of neurogenic bowel. Working with nursing on bowel plan. Incont of bowel x1 * Orthostatic hypotension: Not related to vertigo, but seems to be causing his visual symptoms. Impediment to therapy participation and safety. Continue PO fluids and will prescribe midodrine 5 mg BID in AM and noon, first dose today as a trial. I anticipate that it is likely SCI related and may improve over time. Will also advise compression stockings and abdominal binder * No neurogenic bowel/bladder: bladder scans wnls. Bowel above. * Prophy: LMWH, no GI indicated. Plan to continue LMWH for 8 weeks from date of surgery so will require teaching and home administration. Tentative discharge date of 11/15/16. Will go to friends home with 3 SEUN, as his home with his brothers is in a basement. SW will work to confirm the dc plan since patient will need assistance at least with his C-Collar and will likely need help with lovenox injections as well. Vision changes are new to this provider, complex. 11/12/16 13:26 Subjective: CC: vision changes, spasticity No acute events overnight. Pt complains of vision changes over the weekend, worse today. Initially he did not associate it with anything, vague description , no diplopia. No prior vision problems. Later in the day he acknowledged that the symptoms went away when he was lying down. Further questions revealed that he was feeling lightheaded (not vertigo) when he was standing, and these symptoms resolved when lying down. He has had ongoing c/o orthostasis in other settings. No new numbness, tingling, weakness or other new neuro changes. No CHRISTIAN or nausea. Spasticity of varying intensity noted by therapies over the past week. He is on PRN baclofen right now, not taking per the MAR. Pt notes that spasticity has been particularly troubling and getting in the way of therapies (as have the vision changes). He notices it in his legs and right arm in particular. Nursing reported 1 episode of bowel incont over the weekend, unclear why. Otherwise sleeping well with a good mood. Objective: Vital Signs Temp Pulse Resp BP Pulse Ox 36.7 C 92 16 108/74 93 11/12/16 06:43 11/12/16 06:43 11/12/16 06:43 11/12/16 06:43 11/12/16 06:43 Laboratory Results 11/05/16 16:00 11/08/16 13:56 11/11/16 11/12/16 11/13/16 05:59 05:59 05:59 Intake Total 1720 1920 Output Total 1250 700 Balance 470 1220 - Pending Discharge Pending Discharge Within 24 Hours: No Pending Discharge Within 48 Hours: No Physical Exam - Physical Exam General Appearance: alert, no apparent distress EENT: PERRL/EOMI, No scleral icterus (R), No scleral icterus (L), No anisocoria Neck: other (C collar in place) Respiratory: No respiratory distress, No accessory muscle use Cardiac/Chest: tachycardia Abdomen: normal bowel sounds, non-tender, soft Skin: normal color, warm/dry Extremities: No pedal edema Neuro/Psych: motor weakness, other (Spasticity in R FF approx 2 MAS) ICD10 Worksheet Patient Problems: Problems Problem Status Diagnosed Neurogenic bowel Acute Orthostasis Acute Right sided weakness Acute Spasticity Acute Syrinx of spinal cord Acute - ICD10 Problem Qualifiers (1) Spasticity (2) Orthostasis
[2016-11-12] MEDS: ENOXAPARIN 30 MG/0.3 ML SYR SC SCH ×2 (14:09→20:49)
[2016-11-12] MEDS: BACLOFEN 10 MG TAB PO SCH ×3 (14:28→20:48)
[2016-11-13] MEDS: MIDODRINE HCL 5 MG TAB PO SCH ×3 (07:34→15:28)
[2016-11-13] MEDS: BACLOFEN 10 MG TAB PO SCH ×3 (07:41→21:07)
[2016-11-13] MEDS: ENOXAPARIN 30 MG/0.3 ML SYR SC SCH ×2 (07:42→20:36)
[2016-11-13] MEDS: ACETAMINOPHEN 325 MG TAB PO PRN ×2 (07:42→12:16)
[2016-11-13] MEDS: SENNOSIDES/DOCUSATE SODIUM TAB PO PRN (07:45)
[2016-11-13] MEDS ORDERED: MIDODRINE HCL 5 MG TAB PO SCH (08:00)
--- NOTE | 2016-11-13 13:08 | SOAPPROG ---
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 11/13/2016, vision changes resolved with improved blood pressure (midodrine and wraps). Jaw pain likely synovitis (per discussion with OMFS, consulted today, who will evaluate in person). Spasticity mildly improved with baclofen, plan to increase. * Non-traumatic SCI with impairments in mobility and ADLs: Initial FIM 98 on 11/05. Did 6 steps. Max A for C-collar, min A bathing, o/w SBA or S for ADLs. Continue PT/OT/RN. Mr. Cuevas has a mobility limitation that significantly impairs one or more mobility-related ADLs in the home, and he can use a walker safely, and the functional mobility deficit cannot be resolved with a cane. * Klippel-Feil, Platybasia and Chiari malformation c/b cervical syrinx s/p occiput-C4 decompression/PSF: [place] J at all times except for hygiene, Dressing changes QOD, Right AFO prn. D/C sutures. * Jaw pain: on left, severe, affecting oral intake. OMFS consulted (appreciate help), soft diet, avoid yawning in brace if possible. * Spasticity: Affecting his function and rehab course. Increase baclofen to 10 mg TID. May contribute to worsening orthostasis so plan to monitor closely. * Tight right hand intrinsics. wrist extension splint and stretching per OT * Blurred vision without diplopia- related to orthostatic hypotension, improved as noted below. * Pain control: Controlled. MS contin weaned and will stop PRN opioids as he is not using them. * Left groin pain- possible hip flexor strain, stretching and ice per PT * L thigh pain: c/w IT band syndrome due to gait abnormality. Resolved. * Constipation: Had some periods of constipation, likely a component of neurogenic bowel. Working with nursing on bowel plan. Incont of bowel x1 * Orthostatic hypotension: SCI related, visual symptoms resolved with intervention. Increasing midodrine to 5 mg TID (not after dinner), continue wraps and abdominal binder. * No neurogenic bowel/bladder: bladder scans wnls. Bowel above. * Prophy: LMWH, no GI indicated. Plan to continue LMWH for 8 weeks from date of surgery so will require teaching and home administration. Tentative discharge date of 11/15/16. Will go to friends home with 3 SEUN, as his home with his brothers is in a basement. SW will work to confirm the dc plan since patient will need assistance at least with his C-Collar and will likely need help with lovenox injections as well. Vision changes are new to this provider, complex. 11/12/16 13:26 11/13/16 13:05 11/13/16 13:08 Subjective: CC: jaw pain, spasticity, vision changes and orthostasis No acute events overnight. Spasticity mildly improved with baclofen. Vision changes and orthostatic hypotension resolved with midodrine and wraps. Jaw pain on R is new yesterday, spontaneous, impacting oral intake (not able to eat) and tearful about it during interview. No prior trauma or jaw problems. Unable to elicit better descriptors besides "it hurts bad". Associated with jaw opening and less with clenching teeth. Otherwise no new neuro changes, no weakness, numbness, tingling. Sleeping well, no other new pain. Objective: Vital Signs Temp Pulse Resp BP Pulse Ox 36.9 C 101 H 14 97/62 L 0 L 11/13/16 07:40 11/13/16 12:18 11/13/16 07:40 11/13/16 12:18 11/13/16 07:40 Laboratory Results 11/05/16 16:00 11/08/16 13:56 11/12/16 11/13/16 11/14/16 05:59 05:59 05:59 Intake Total 1920 500 120 Output Total 700 300 Balance 1220 200 120 Physical Exam - Physical Exam General Appearance: alert, mild distress EENT: other (No tenderness appreciated. No swelling or redness appreciated around the jaw on L. Unable to fully open mouth (winced in pain), able to clench mildly.) Respiratory: lungs clear, normal breath sounds, No respiratory distress, No accessory muscle use Cardiac/Chest: normal peripheral pulses, regular rate, rhythm Abdomen: non-tender, soft Skin: normal color, warm/dry, No cyanosis Extremities: non-tender, No pedal edema, No swelling Neuro/Psych: alert (tearful when talking about jaw) ICD10 Worksheet Patient Problems: Problems Problem Status Onset Neurogenic bowel Acute Orthostasis Acute Right sided weakness Acute Spasticity Acute Syrinx of spinal cord Acute - ICD10 Problem Qualifiers (1) Spasticity (2) Orthostasis
[2016-11-13] MEDS: ACETAMINOPHEN 325 MG TAB PO SCH ×2 (15:27→20:36)
[2016-11-14] MEDS: ACETAMINOPHEN 325 MG TAB PO SCH ×4 (06:30→20:15)
[2016-11-14] MEDS: MIDODRINE HCL 5 MG TAB PO SCH ×3 (06:31→15:20)
[2016-11-14] MEDS: SENNOSIDES/DOCUSATE SODIUM TAB PO PRN (09:09)
[2016-11-14] MEDS: BACLOFEN 10 MG TAB PO SCH ×3 (09:09→20:21)
[2016-11-14] MEDS: ENOXAPARIN 30 MG/0.3 ML SYR SC SCH ×2 (09:09→20:19)
[2016-11-14] MEDS ORDERED: IBUPROFEN 600 MG TAB PO PRN (12:03)
[2016-11-14] MEDS ORDERED: oxyCODONE IR 5 MG TAB PO PRN (12:03)
--- NOTE | 2016-11-14 13:52 | SOAPPROG ---
SOAP Progress Note Assessment/Plan: Assessment: 20 yo Irish speaking M with Klippel-Feil, Platybasia and Chiari malformation c /b cervical syrinx s/p occiput-C4 decompression/PSF 10/27/2015 with ongoing Right sided weakness/spasticity. * Non-traumatic SCI with impairments in mobility and ADLs: Initial FIM 98 on 11/05. Walked 200' FWW SBA. Did 6 steps. Max A for C-collar, min A bathing, o/ w SBA or S for ADLs. Continue PT/OT/RN * Klippel-Feil, Platybasia and Chiari malformation c/b cervical syrinx s/p occiput-C4 decompression/PSF: [place] J at all times except for hygiene, Dressing changes QOD, Right AFO prn. D/C sutures. * TMJ pain, Due to cervical collar? Restarted oxycodone. NSAIDs contraindicated s/p C-spine fusion. Acetaminophen has been scheduled. D/W Dr. Ballard, Neurosurgery 11/14/16: may remove collar for eating. * Tight right hand intrinsics. wrist extension splint and stretching per OT. * Spasticity: Mild and not seemingly disturbing, not using baclofen 10mg TID prn * Pain control: improving, minimal prn use. D/C Ms contin 15 qHS on 11/09/16; continue Oxy IR 5-10mg q 4hrs prn. * L thigh pain: c/w IT band syndrome due to gait abnormality. Resolved. * Constipation: escalated bowel regiment, decreasing opioids, improving; change senna to PRN on 11/09/16. * Orthostatic hypotension: symptoms mostly resolved with midodrine. Related to SCI? * No neurogenic bowel/bladder: bladder scans wnls * Prophy: LMWH, no GI indicated Mr. Cuevas has a mobility limitation that significantly impairs one or more mobility-related ADLs in the home, and he can use a walker safely, and the functional mobility deficit cannot be resolved with a cane. Discharge date of 11/15/16. Will go to friends home with 3 SEUN, as his home with his brothers is in a basement. Will have home PT, OT, RN. Follow up: Dr. Ballard ([facility]) 11/15/16. Follow-up with new PCP Candis Sparrow at [facility] 11/19/16. 11/14/16 13:17 Subjective: C/O L jaw pain, Hurts to open mouth or to chew. No pain with breathing, coughing, swallowing. Unable to eat. O/W w/out complaint. Objective: Vital Signs Temp Pulse Resp BP Pulse Ox 36.9 C 103 H 16 112/80 95 11/14/16 08:00 11/14/16 08:00 11/14/16 08:00 11/14/16 08:00 11/14/16 08:00 Laboratory Results 11/05/16 16:00 11/08/16 13:56 11/13/16 11/14/16 11/15/16 05:59 05:59 05:59 Intake Total 500 520 236 Output Total 300 Balance 200 520 236 Physical Exam - Physical Exam General Appearance: WD/WN, alert, no apparent distress EENT: other (Limited TMJ motion on L. Tender topalpation proximal TMJ & cheek below posterior aspect of zygomatic process. No palpable muscle spasm.) Respiratory: No respiratory distress, No accessory muscle use Skin: normal color, warm/dry Neuro/Psych: alert, normal mood/affect, oriented x 3 ICD10 Worksheet Patient Problems: Problems Problem Status Onset Neurogenic bowel Acute Orthostasis Acute Right sided weakness Acute Spasticity Acute Syrinx of spinal cord Acute
[2016-11-15] MEDS: MIDODRINE HCL 5 MG TAB PO SCH ×3 (06:32→16:09)
[2016-11-15] MEDS: ACETAMINOPHEN 325 MG TAB PO SCH ×4 (06:32→21:10)
[2016-11-15 09:56] LABS: ANION GAP 11 mEq/L (8-16); CARBON DIOXIDE 27 mEq/l (22-31); CHLORIDE 101 mEq/L (97-110); CREATININE 0.6 mg/dL (0.7-1.3); GLOMERULAR FILTRATION RATE > 60; GLUCOSE 80 mg/dL (70-100); POTASSIUM 4.3 mEq/L (3.5-5.2); SODIUM 139 mEq/L (134-144)
[2016-11-15] MEDS: ENOXAPARIN 30 MG/0.3 ML SYR SC SCH ×2 (09:57→21:11)
[2016-11-15] MEDS: BACLOFEN 10 MG TAB PO SCH ×3 (09:57→21:11)
[2016-11-15 10:27] LABS: CORTISOL-AM 15.3 ug/dL (4.5-22.7)
--- NOTE | 2016-11-15 13:21 | SOAPPROG ---
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 * Non-traumatic SCI with impairments in mobility and ADLs: Initial FIM 98 on 11/05. Walked 200' FWW SBA. Did 6 steps. Max A for C-collar, min A bathing, o/ w SBA or S for ADLs. Continue PT/OT/RN * Klippel-Feil, Platybasia and Chiari malformation c/b cervical syrinx s/p occiput-C4 decompression/PSF: [place] J at all times except for hygiene, Dressing changes QOD, Right AFO prn. D/C sutures. * Orthostatic hypotension: related to SCI? Interfering with function, not resolved with midodrine and abdominal binder; systolic into the 60s and pulse 130s with standing. BMP not c/w dehydration; good PO intake yesterday. D/W Dr. Ballard, Neurosurgery: has not seen this before with this kind of surgery but conceivable that there is autonomic dysfunction. D/W Dr. Bland, Neurology: no diagnostics available locally; [place] and [facility] can do specific testing. Lili Horan in [facility] is a local autonomic neurologist. Will try IV fluids with NS 1000 cc at 250 cc/hr, and increase midodrine. Recheck orthostatics after fluids. * TMJ pain, Due to cervical collar? Restarted oxycodone. NSAIDs contraindicated s/p C-spine fusion. Acetaminophen has been scheduled. D/W Dr. Ballard, Neurosurgery 11/14/16: may remove collar for eating. * Tight right hand intrinsics. wrist extension splint and stretching per OT. * Spasticity: Mild and not seemingly disturbing, not using baclofen 10mg TID prn * Pain control: improving, minimal prn use. D/C Ms contin 15 qHS on 11/09/16; continue Oxy IR 5-10mg q 4hrs prn. * L thigh pain: c/w IT band syndrome due to gait abnormality. Resolved. * Constipation: escalated bowel regiment, decreasing opioids, improving; change senna to PRN on 11/09/16. * No neurogenic bowel/bladder: bladder scans wnls * Prophy: LMWH, no GI indicated Mr. Cuevas has a mobility limitation that significantly impairs one or more mobility-related ADLs in the home, and he can use a walker safely, and the functional mobility deficit cannot be resolved with a cane. Discharge date of 11/15/16, delayed due to orthostatic hypotension.. Will go to friends home with 3 SEUN, as his home with his brothers is in a basement. Will have home PT, OT, RN. Follow up: Dr. Ballard ([facility]). Follow-up with new PCP Candis Sparrow at [facility] 11/19/16. 11/15/16 14:41 Subjective: Continues to have orthostatic hypotension. Fell this morning; had symptoms 2nd time he arose from bed. Had taken midodrine 1 1/2 hours earlier and was wearing abdominal binder. Subsequently got up for PT and had bowel incontinence. Denies n/v/c/d, dysuria, dyspnea, cough, f/c. Objective: Vital Signs Temp Pulse Resp BP Pulse Ox 36.6 C 89 16 125/88 H 94 11/15/16 06:27 11/15/16 08:05 11/15/16 06:27 11/15/16 08:05 11/15/16 06:27 Laboratory Results 11/05/16 16:00 11/15/16 08:50 11/14/16 11/15/16 11/16/16 05:59 05:59 05:59 Intake Total 520 1348 Balance 520 1348 Physical Exam - Physical Exam General Appearance: WD/WN, alert, no apparent distress Respiratory: normal breath sounds, No crackles, No rhonchi, No wheezing Cardiac/Chest: regular rate, rhythm, No edema Neuro/Psych: alert, normal mood/affect, oriented x 3 ICD10 Worksheet Patient Problems: Problems Problem Status Onset Neurogenic bowel Acute Orthostasis Acute Right sided weakness Acute Spasticity Acute Syrinx of spinal cord Acute
[2016-11-15] MEDS ORDERED: NS 1,000 ML IV SCH (14:30)
[2016-11-16] MEDS: ACETAMINOPHEN 325 MG TAB PO SCH ×3 (06:02→17:08)
[2016-11-16] MEDS: MIDODRINE HCL 5 MG TAB PO SCH ×3 (06:02→17:08)
[2016-11-16] MEDS: BACLOFEN 10 MG TAB PO SCH (08:07)
[2016-11-16] MEDS: ENOXAPARIN 30 MG/0.3 ML SYR SC SCH (08:08)
[2016-11-16 08:48] VITALS: RESP 16; TEMP 98.1; O2SAT 92
[2016-11-16] MEDS ORDERED: FLUDROCORTISONE ACETATE 0.1 MG TAB PO SCH (09:30)
--- NOTE | 2016-11-16 09:54 | SOAPPROG ---
SOAP Progress Note Assessment/Plan: Assessment: 20 yo Slovak speaking M with Klippel-Feil, Platybasia and Chiari malformation c /b cervical syrinx s/p occiput-C4 decompression/PSF 10/27/2015 with ongoing Right sided weakness/spasticity. * Non-traumatic SCI with impairments in mobility and ADLs: Initial FIM 98 on 11/05. Walked 200' FWW SBA. Did 6 steps. Max A for C-collar, min A bathing, o/ w SBA or S for ADLs. Continue PT/OT/RN * Klippel-Feil, Platybasia and Chiari malformation c/b cervical syrinx s/p occiput-C4 decompression/PSF: [place] J at all times except for hygiene, Dressing changes QOD, Right AFO prn. D/C sutures. * Orthostatic hypotension: related to SCI? Interfering with function, not resolved with midodrine and abdominal binder; systolic into the 60s and pulse 130s with standing. BMP not c/w dehydration; good PO intake yesterday. Not improved after 1000 cc NS over 4 hours yesterday 11/15/16; BP/pulse this morning after ambulating 77/50, 137. D/W Dr. Ballard, Neurosurgery: has not seen this before with this kind of surgery but conceivable that there is autonomic dysfunction. D/W Dr. Bland, Neurology: no diagnostics available locally; [place] and [facility] can do specific testing. Lili Horan in [place] is a local autonomic neurologist; 11/16/16 . Add fludrocortisone today 11/16. D/W Dr. Horan 11/16/16: advises adding NaCl 10 gm/day. Can see him in clinic 11/20/16. * TMJ pain, Due to cervical collar? Restarted oxycodone. NSAIDs contraindicated s/p C-spine fusion. Acetaminophen has been scheduled. D/W Dr. Ballard, Neurosurgery 11/14/16: may remove collar for eating. * Tight right hand intrinsics. wrist extension splint and stretching per OT. * Spasticity: D/C baclofen 10mg TID as it may contribute to hypotension. * Pain control: improving, minimal prn use. D/C Ms contin 15 qHS on 11/09/16; continue Oxy IR 5-10mg q 4hrs prn. * L thigh pain: c/w IT band syndrome due to gait abnormality. Resolved. * Constipation: escalated bowel regiment, decreasing opioids, improving; change senna to PRN on 11/09/16. * No neurogenic bowel/bladder: bladder scans wnls * Prophy: LMWH, no GI indicated Mr. Cuevas has a mobility limitation that significantly impairs one or more mobility-related ADLs in the home, and he can use a walker safely, and the functional mobility deficit cannot be resolved with a cane. Discharge date of 11/15/16, delayed due to orthostatic hypotension. D/C today . Will go to friends home with 3 SEUN, as his home with his brothers is in a basement. Will have home PT, OT, RN. Follow up: Dr. Ballard ([facility] Follow-up with new PCP Candis Sparrow at [facility] 11/19/16. Follow-up Dr. Horan 11/20/16. 11/16/16 12:45 Subjective: Feels better this morning. Denies dizziness. Objective: Vital Signs Temp Pulse Resp BP Pulse Ox 36.7 C 84 16 106/79 92 11/16/16 08:00 11/16/16 08:00 11/16/16 08:00 11/16/16 08:00 11/16/16 08:00 Laboratory Results 11/05/16 16:00 11/15/16 08:50 11/15/16 11/16/16 11/17/16 05:59 05:59 05:59 Intake Total 1348 2100 200 Output Total 2225 250 Balance 1348 -125 -50 Physical Exam - Physical Exam General Appearance: WD/WN, alert, no apparent distress Respiratory: No respiratory distress, No accessory muscle use Cardiac/Chest: tachycardia, No edema Skin: normal color, warm/dry Neuro/Psych: no motor/sensory deficits, alert, normal mood/affect, oriented x 3 , other (Ambulating in ruiz with PT using FWW, normal gait and normal pace.) ICD10 Worksheet Patient Problems: Problems Problem Status Onset Neurogenic bowel Acute Orthostasis Acute Right sided weakness Acute Spasticity Acute Syrinx of spinal cord Acute
[2016-11-16 13:07] VITALS: BP 108/74; PULSE 103
[2016-11-16] MEDS ORDERED: SODIUM CHLORIDE 1,000 MG TAB PO SCH (18:00)
--- NOTE | 2016-11-17 14:30 | GDS ---
[f rep st] DISCHARGE SUMMARY ADMITTING DIAGNOSIS: Debility status post excision of cervical and thoracic spine syrinx. DISCHARGE DIAGNOSIS: Debility status post excision of cervical and thoracic spine syrinx. OTHER DISCHARGE DIAGNOSIS: Orthostatic hypotension. CONSULTATIONS: There were none. PROCEDURES: There were none. COMPLICATIONS: Other than orthostatic hypotension, there were none. HISTORY AND HOSPITAL COURSE: Mr. Cuevas was admitted to [facility] inpatient rehabilitation from [facility]. He had originally presented there in the end of September with gradually worsening right upper extremity weakness. 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 He underwent surgery on 2016 with a posterior fossa decompression with C0 through C4 posterior cervical fusion. He had steady improvement in rehabilitation, and he arrived with a fairly high functional status. His functional independence measure (FIM) was 98 on 2016. This was consistent with a high level of assisted living facility function. He did, however, require assistance for management of his cervical collar and for bathing. He had orthostatic hypotension. Basic metabolic profile on 11/04/2016 was consistent with mild dehydration. He was encouraged to hydrate. However, the orthostatic hypotension persisted and eventually appeared to be related to autonomic insufficiency due to spinal cord injury. It interfered with function. He was started on midodrine and an abdominal binder. He continued to have systolic blood pressure dropping into the 60s and pulse in the 130s with standing. Midodrine was titrated from 5 to 10 mg three times daily and he was bolused a 1000 cc of normal saline on 11/15/2016. He continued to be orthostatic, and on the morning of 11/16/2016, he fell a fall with orthostatic symptoms. Discussion was had with Dr. Bland of [facility] in [place]. He reported that Dr. Lili Horan in [place] was a local autonomic neuropathy specialist. She was reached by phone and advised adding fludrocortisone as well as salt tablets up to 10 g per day, and he was referred to her for followup. He had a day of temporomandibular joint pain. This was thought to be due to the cervical collar interfering with jaw motion. This resolved after a day. He was noted to have some spasticity. He was put on baclofen, but this was subsequently discontinued as it can contribute to hypotension. Laboratory studies showed mild anemia on 09/04/2017. His hemoglobin was 12.8 and his hematocrit was 36.1. He had an elevated white blood cell count at 10.39 , but there were no symptoms of infection. Chemistry panel was consistent with mild dehydration on 11/04/2016 with a BUN of 19 and creatinine of 0.6. His hydration status improved. On 11/15/2016, his BUN was 11 and creatinine was 0.6. Otherwise, renal function, electrolytes, and liver function tests were normal. His fasting cortisol on 11/15/2016 was normal as well. Urinalysis on 11/05/2016 showed an elevated pH of 8 and was noted to be moderately turbid; otherwise, urinalysis was within normal limits. DISCHARGE PLAN: Condition upon discharge is good. Activity is ad angelita, but he ambulates with a walker and he merits supervision due to his risk of falling caused by orthostatic hypotension. DIET: Regular. DATE OF NEXT APPOINTMENT: He has followup scheduled with primary care provider , Dr. Candis Sparrow, on 11/19/2016; with neurologist, Dr. Lili Horan, on ; and with neurosurgeon, Dr. Edenilson Ballard, on 11/21/2016. MEDICATIONS AT DISCHARGE: 1. Oxycodone 5-10 mg q.4 hours p.r.n. 2. Sodium chloride tablets 3000 mg p.o. three times daily with meals. 3. Senna/docusate 2 tablets p.o. twice daily p.r.n. 4. Polyethylene glycol 17 g daily p.r.n. 5. Midodrine 10 mg p.o. three times daily. 6. Fludrocortisone 0.1 mg p.o. daily. 7. Acetaminophen 650 mg p.o. four times daily. ISSUES TO BE ADDRESSED AT FOLLOWUP: 1. Functional status. He will continue physical therapy and occupational therapy at home. 2. Orthostatic hypotension. He can have followup regarding this with his primary care provider and Dr. Lili Horan, autonomic neurologist. Copy requested to: Dr. Lili Cano MD [id number] [facility] [address] [place] [address], [place] [address] /[id number]/MODL [id number]
== END 2016-11-16 17:45 | disposition home or self-care (01) | DRG 949 ==
LOC: BREH 16:30
PROVIDERS: ADMIT Internal Medicine; ATTEND Internal Medicine
PROC: F0636ZZ Communicative/Cognitive Integration Skills Treatment of Neurological System - Whole Body (ICD-10-PCS; principal; 2016-11-02)
PROC: F08Z4ZZ Home Management Treatment (ICD-10-PCS; principal; 2016-11-02)
PROC: F07M3ZZ Motor Function Treatment of Musculoskeletal System - Whole Body (ICD-10-PCS; principal; 2016-11-02)
DX: Z48.811 Encounter for surgical aftercare following surgery on the nervous system (principal); Q76.1 Klippel-Feil syndrome; Q75.8 Other specified congenital malformations of skull and face bones; G95.0 Syringomyelia and syringobulbia; M62.838 Other muscle spasm; I95.1 Orthostatic hypotension; N31.9 Neuromuscular dysfunction of bladder, unspecified; K59.2 Neurogenic bowel, not elsewhere classified; K59.00 Constipation, unspecified; E86.0 Dehydration; Z23 Encounter for immunization
CPT/HCPCS: 97110-GO; 97110-GP; 97112-GO; 97112-GP; 97116-GP; 97140-GO; 97162-GP; 97166-GO; 97530-GO; 97530-GP; 97535-GO; G0008; J1650

== ENCOUNTER → 2017-09-19 | Outpatient (CLI) | payer OTHER | LOC: FIMAGING 08:55 | PROVIDERS: ATTEND Physician Assistant | DX: M47.12 Other spondylosis with myelopathy, cervical region (principal); Q07.02 Arnold-Chiari syndrome with hydrocephalus; Z98.1 Arthrodesis status ==